=== PATIENT | male | born 1955 | race American Indian/Alaskan Native ===

== ENCOUNTER 2016-08-28 13:43 | Inpatient (IN) | payer MEDICAID, OTHER ==
[~2016-08-28] VITALS: Ht 170.2 cm; Wt 92.4 kg
[~2016-08-28 13:43] MED LIST: CLIN300C93 PO
[2016-08-28] MEDS ORDERED: GABA600T2 PO (14:42)
[2016-08-28] MEDS ORDERED: HYDR-3307 PO (14:42)
[2016-08-28] MEDS ORDERED: OMNIPAQUE 350 MG/ML, 100ML BOTTLE ONE (15:30)
[2016-08-28 15:44] LABS: ASPARTATE AMINO TRANSFERASE 29 U/L (15-37); BLOOD UREA NITROGEN 15 mg/dL (7-18)
[2016-08-28] MEDS ORDERED: VANCOMYCIN PER PHARMACY IV ONE (16:00)
[2016-08-28] MEDS ORDERED: VANCOMYCIN 1,800 MG in SODIUM CHLORIDE 0.9% 250 ML IV ONE (16:00)
[2016-08-28] MEDS ORDERED: PHARMACOKINETIC CONSULTATION MC ONE ×2 (16:00→21:30)
[2016-08-28] MEDS ORDERED: PIPERACILLIN/TAZO 3.375 GM in SODIUM CHLORIDE 0.9% 50 ML IVPB ONE (16:00)
[2016-08-28 16:07] LABS: DIFF TOTAL CELLS COUNTED 100 CELL DIFF
[2016-08-28 16:09] LABS: VERIFY COUNTS? YES
[2016-08-28 16:10] LABS: MICROCYTOSIS 1+
[2016-08-28] MEDS ORDERED: SODIUM CHLORIDE 0.9% 1,000ML IVBOLUS ONE (16:30)
[2016-08-28] MEDS ORDERED: ACETAMINOPHEN 325 MG TABLET PO ONE (17:00)
[2016-08-28] MEDS ORDERED: ACETAMINOPHEN 500 MG TABLET ONE (17:02)
[2016-08-28] MEDS ORDERED: PIPERACILLIN/TAZO/PMX 3.375GM 50 ML ONE (17:09)
[2016-08-28] MEDS ORDERED: MORPHINE SULFATE 4 MG/ML, 1ML IVPush PRN (18:30)
[2016-08-28] MEDS ORDERED: ONDANSETRON 2MG/ML, 2ML IVPush ONE (18:30)
[2016-08-28] MEDS ORDERED: ONDANSETRON 2MG/ML, 2ML ONE (18:57)
[2016-08-28] MEDS ORDERED: BISACODYL 10 MG SUPP PR PRN (19:00)
[2016-08-28] MEDS ORDERED: ONDANSETRON 2MG/ML, 2ML IVPush PRN (19:00)
[2016-08-28] MEDS: HEPARIN 5,000 UNITS/ML, 1ML SQ SCH (19:00)
[2016-08-28] MEDS ORDERED: ENALAPRILAT 1.25 MG/ML, 2ML IVPush PRN (19:00)
[2016-08-28] MEDS ORDERED: hydrALAzine 20 MG/ML, 1ML IVPush PRN (19:00)
[2016-08-28] MEDS ORDERED: POLYETHYLENE GLYCOL 17 GM PACKET PO PRN (19:00)
[2016-08-28] MEDS ORDERED: ACETAMINOPHEN 325 MG TABLET PO PRN (19:00)
[2016-08-28] MEDS ORDERED: VANCOMYCIN PMX 1GM/200ML 200 ML IV ONE (19:30)
[2016-08-28] MEDS ORDERED: VANCOMYCIN PER PHARMACY MC PRN (19:30)
[2016-08-28] MEDS ORDERED: POTASSIUM CHLORIDE 20 MEQ TAB.ER.PRT PO ONE (19:30)
[2016-08-28] MEDS ORDERED: PHARMACOKINETIC MONITORING MC PRN (21:30)
[2016-08-28 22:11] VITALS: BP 102/59
[2016-08-28] MEDS: GABAPENTIN 100 MG CAPSULE PO SCH (22:59)
[2016-08-28] MEDS: PIPERACILLIN/TAZO/PMX 3.375GM 50 ML IV SCH (22:59)
[2016-08-28] MEDS: OXYcodone/APAP 5/325MG TABLET PO PRN (23:00)
[2016-08-28] MEDS: SODIUM CHLORIDE 0.9% 1,000 ML IV SCH (23:00)
[2016-08-29] MEDS ORDERED: ALBUTEROL SULFATE 2.5 MG/3 ML NPPB PRN
[2016-08-29 01:18] VITALS: BP 92/59
[2016-08-29] MEDS: HEPARIN 5,000 UNITS/ML, 1ML SQ SCH ×4 (03:00→21:30)
[2016-08-29] MEDS: PIPERACILLIN/TAZO/PMX 3.375GM 50 ML IV SCH ×3 (05:10→20:40)
[2016-08-29 06:03] LABS: BLOOD UREA NITROGEN 13 mg/dL (7-18)
[2016-08-29 06:07] LABS: ASPARTATE AMINO TRANSFERASE 23 U/L (15-37)
[2016-08-29] MEDS ORDERED: VANCOMYCIN 1,600 MG in SODIUM CHLORIDE 0.9% 250 ML IV SCH (06:45)
[2016-08-29] MEDS: GABAPENTIN 100 MG CAPSULE PO SCH ×3 (08:18→20:57)
[2016-08-29] MEDS: SENNA/DOCUSATE TABLET PO SCH (08:18)
[2016-08-29] MEDS: SODIUM CHLORIDE 0.9% 1,000 ML IV SCH ×2 (08:29→15:24)
[2016-08-29 08:30] VITALS: BP 126/77
[2016-08-29] MEDS: morphine SULFATE 10 MG/ML, 1ML IVPush PRN (09:14)
[2016-08-29 11:42] LABS: PATH.CAST-FLAG NOT PRESENT; SPERM-FLAG NOT PRESENT; SRC-FLAG NOT PRESENT; XTAL-FLAG NOT PRESENT; YLC-FLAG NOT PRESENT
[2016-08-29] MEDS ORDERED: POTASSIUM CHLORIDE 40 MEQ in SODIUM CHLORIDE 0.9% 500 ML IV ONE (13:00)
[2016-08-29] MEDS ORDERED: ENALAPRILAT 1.25 MG/ML, 2ML IVPush PRN (13:04)
[2016-08-29] MEDS: OXYcodone/APAP 5/325MG TABLET PO PRN ×2 (13:34→20:57)
[2016-08-29 15:40] VITALS: BP 102/63
[2016-08-29] MEDS: VANCOMYCIN 1,600 MG in SODIUM CHLORIDE 0.9% 250 ML IV SCH (18:11)
[2016-08-29 20:28] VITALS: BP 147/85
[2016-08-30] MEDS: PIPERACILLIN/TAZO/PMX 3.375GM 50 ML IV SCH ×3 (01:43→16:46)
[2016-08-30] MEDS: HEPARIN 5,000 UNITS/ML, 1ML SQ SCH ×3 (01:44→18:46)
[2016-08-30 03:31] VITALS: BP 99/56
[2016-08-30] MEDS: VANCOMYCIN 1,600 MG in SODIUM CHLORIDE 0.9% 250 ML IV SCH ×2 (05:57→20:59)
[2016-08-30] MEDS: OXYcodone/APAP 5/325MG TABLET PO PRN ×2 (05:57→12:13)
[2016-08-30 08:25] VITALS: BP 118/70
[2016-08-30] MEDS: GABAPENTIN 100 MG CAPSULE PO SCH ×3 (08:39→20:59)
[2016-08-30] MEDS: SENNA/DOCUSATE TABLET PO SCH ×2 (08:52→08:59)
[2016-08-30] MEDS: morphine SULFATE 10 MG/ML, 1ML IVPush PRN ×4 (08:52→20:59)
[2016-08-30 13:06] VITALS: BP 123/81
[2016-08-30 19:18] VITALS: BP 142/88
[2016-08-31] MEDS: HEPARIN 5,000 UNITS/ML, 1ML SQ SCH ×3 (01:58→17:50)
[2016-08-31] MEDS: OXYcodone/APAP 5/325MG TABLET PO PRN ×3 (01:58→19:58)
[2016-08-31] MEDS: VANCOMYCIN 1,600 MG in SODIUM CHLORIDE 0.9% 250 ML IV SCH ×2 (01:59→15:44)
[2016-08-31 02:48] VITALS: BP 127/72
[2016-08-31] MEDS: morphine SULFATE 10 MG/ML, 1ML IVPush PRN ×3 (04:20→23:00)
[2016-08-31] MEDS: PIPERACILLIN/TAZO/PMX 3.375GM 50 ML IV SCH ×3 (06:14→17:50)
[2016-08-31 07:54] VITALS: BP 126/66
[2016-08-31] MEDS: GABAPENTIN 100 MG CAPSULE PO SCH ×3 (08:09→21:00)
[2016-08-31] MEDS: SENNA/DOCUSATE TABLET PO SCH ×2 (08:09→08:16)
[2016-08-31] MEDS: OxyconTIN ER 10 MG TAB.ER PO SCH (13:13)
[2016-08-31 14:30] VITALS: BP 127/80
[2016-08-31 19:46] VITALS: BP 143/74
[2016-09-01] MEDS: PIPERACILLIN/TAZO/PMX 3.375GM 50 ML IV SCH ×5 (00:18→20:47)
[2016-09-01] MEDS: OXYcodone/APAP 5/325MG TABLET PO PRN (00:18)
[2016-09-01] MEDS: HEPARIN 5,000 UNITS/ML, 1ML SQ SCH ×3 (01:22→20:00)
[2016-09-01] MEDS: OxyconTIN ER 10 MG TAB.ER PO SCH ×2 (01:22→13:05)
[2016-09-01] MEDS: VANCOMYCIN 1,600 MG in SODIUM CHLORIDE 0.9% 250 ML IV SCH ×3 (01:22→13:05)
[2016-09-01 01:33] VITALS: BP 139/82
[2016-09-01] MEDS: morphine SULFATE 10 MG/ML, 1ML IVPush PRN ×2 (05:35→20:46)
[2016-09-01 07:37] VITALS: BP 142/85
[2016-09-01] MEDS: GABAPENTIN 100 MG CAPSULE PO SCH ×3 (08:36→20:47)
[2016-09-01] MEDS: SENNA/DOCUSATE TABLET PO SCH (08:36)
[2016-09-01] MEDS: LACTOBACILLUS CHEW TABLET PO SCH ×3 (13:05→20:47)
[2016-09-01 16:06] VITALS: BP 124/81
[2016-09-01 18:55] VITALS: BP 133/78
[2016-09-02] MEDS: OxyconTIN ER 10 MG TAB.ER PO SCH ×2 (00:48→14:26)
[2016-09-02] MEDS: VANCOMYCIN 1,600 MG in SODIUM CHLORIDE 0.9% 250 ML IV SCH ×2 (00:53→15:34)
[2016-09-02] MEDS: morphine SULFATE 10 MG/ML, 1ML IVPush PRN ×2 (00:53→23:38)
[2016-09-02 01:34] VITALS: BP 133/66
[2016-09-02] MEDS: PIPERACILLIN/TAZO/PMX 3.375GM 50 ML IV SCH ×4 (03:11→23:38)
[2016-09-02] MEDS: HEPARIN 5,000 UNITS/ML, 1ML SQ SCH ×3 (04:00→23:38)
[2016-09-02 07:45] VITALS: BP 143/82
[2016-09-02] MEDS ORDERED: LIDOCAINE 1%, 20ML ONE (08:21)
[2016-09-02] MEDS ORDERED: MIDAZOLAM 1 MG/ML, 5ML ONE (08:28)
[2016-09-02] MEDS ORDERED: NALOXONE 1 MG/ML, 2ML ONE (08:29)
[2016-09-02] MEDS ORDERED: FENTANYL PF 100 MCG/2ML ONE (08:29)
[2016-09-02] MEDS ORDERED: FLUMAZENIL 0.1 MG/1 ML, 5ML ONE (08:29)
[2016-09-02] MEDS: LACTOBACILLUS CHEW TABLET PO SCH ×3 (09:00→21:45)
[2016-09-02] MEDS: GABAPENTIN 100 MG CAPSULE PO SCH ×4 (09:00→21:48)
[2016-09-02] MEDS: SENNA/DOCUSATE TABLET PO SCH (09:00)
[2016-09-02 10:24] VITALS: BP 149/95
[2016-09-02 12:10] VITALS: BP 141/84
[2016-09-02] MEDS: OXYcodone/APAP 5/325MG TABLET PO PRN ×2 (17:02→21:51)
[2016-09-02 19:29] VITALS: BP 124/73
[2016-09-03 01:33] VITALS: BP 114/73
[2016-09-03] MEDS: VANCOMYCIN 1,600 MG in SODIUM CHLORIDE 0.9% 250 ML IV SCH ×2 (03:36→15:39)
[2016-09-03] MEDS: OxyconTIN ER 10 MG TAB.ER PO SCH ×2 (03:37→14:19)
[2016-09-03] MEDS: PIPERACILLIN/TAZO/PMX 3.375GM 50 ML IV SCH ×4 (05:27→23:16)
[2016-09-03] MEDS: SENNA/DOCUSATE TABLET PO SCH (08:13)
[2016-09-03] MEDS: HEPARIN 5,000 UNITS/ML, 1ML SQ SCH ×3 (08:13→23:17)
[2016-09-03] MEDS: GABAPENTIN 100 MG CAPSULE PO SCH ×4 (08:16→22:04)
[2016-09-03] MEDS: LACTOBACILLUS CHEW TABLET PO SCH ×3 (08:16→22:03)
[2016-09-03 08:41] LABS: BLOOD UREA NITROGEN 11 mg/dL (7-18)
[2016-09-03 08:48] VITALS: BP 129/75
[2016-09-03] MEDS: OXYcodone/APAP 5/325MG TABLET PO PRN (09:29)
[2016-09-03] MEDS: morphine SULFATE 10 MG/ML, 1ML IVPush PRN ×3 (11:29→20:51)
[2016-09-03 15:03] VITALS: BP 148/83
[2016-09-03 20:35] VITALS: BP 130/81
[2016-09-04] MEDS: OxyconTIN ER 10 MG TAB.ER PO SCH (02:35)
[2016-09-04] MEDS: VANCOMYCIN 1,600 MG in SODIUM CHLORIDE 0.9% 250 ML IV SCH (02:47)
[2016-09-04 03:14] VITALS: BP 140/84
[2016-09-04] MEDS: PIPERACILLIN/TAZO/PMX 3.375GM 50 ML IV SCH ×2 (05:08→11:58)
[2016-09-04 07:12] VITALS: BP 122/84
[2016-09-04] MEDS: HEPARIN 5,000 UNITS/ML, 1ML SQ SCH (07:54)
[2016-09-04] MEDS: morphine SULFATE 10 MG/ML, 1ML IVPush PRN ×2 (07:54→11:58)
[2016-09-04] MEDS: SENNA/DOCUSATE TABLET PO SCH (07:55)
[2016-09-04] MEDS: LACTOBACILLUS CHEW TABLET PO SCH (07:55)
[2016-09-04] MEDS: GABAPENTIN 100 MG CAPSULE PO SCH (07:55)
[2016-09-04] MEDS ORDERED: GABA300C10 PO (10:49)
[2016-09-04] MEDS ORDERED: AMOX1TAB64 PO (10:49)
[2016-09-04] MEDS ORDERED: LACT1CAP24 PO (10:49)
[2016-09-04] MEDS ORDERED: OXYC-229 PO (10:49)
[2016-09-04] MEDS ORDERED: SENN1TAB7 PO (10:49)
[2016-09-04 14:43] VITALS: BP 140/84
== END 2016-09-04 15:09 | disposition home or self-care (01) | DRG 853 ==
LOC: ED 18:24 → EDIP 18:30 → EDBD 18:30 → 3NE 20:50
PROVIDERS: ADMIT Internal Medicine; ATTEND Internal Medicine
PROC: 07BJ3ZX Excision of Left Inguinal Lymphatic, Percutaneous Approach, Diagnostic (ICD-10-PCS; principal; 2016-09-02)
DX: A41.9 Sepsis, unspecified organism (principal); E43 Unspecified severe protein-calorie malnutrition; J18.9 Pneumonia, unspecified organism; L03.116 Cellulitis of left lower limb; L03.115 Cellulitis of right lower limb; B18.2 Chronic viral hepatitis C; F11.10 Opioid abuse, uncomplicated; G89.29 Other chronic pain; R59.0 Localized enlarged lymph nodes; E87.6 Hypokalemia; D50.9 Iron deficiency anemia, unspecified; Z90.49 Acquired absence of other specified parts of digestive tract; Z86.14 Personal history of Methicillin resistant Staphylococcus aureus infection; Z79.899 Other long term (current) drug therapy; Z68.31 Body mass index [BMI] 31.0-31.9, adult
CPT/HCPCS: 36415; 38505; 70450; 71010; 74177; 76942; 80048; 80053; 80061; 80202; 81001; 81003; 82140; 82728; 82962; 83036; 83540; 83550; 83605; 83615; 83735; 84145; 84439; 84443; 84466; 85025; 85610; 85651; 86140; 87040; 88305; 88341; 88342; 93005; 93970; 96361; 96365; 96366; 96367; 96375; 99156; 99157; J1644; J2250; J2405; J2543; J3010; J3370; J3480; J3490; Q9967; G0461; J2270; J2310; J7030; J7040; J7050

== ENCOUNTER 2016-09-15 19:44 | Observation (INO) | payer MEDICAID ==
[~2016-09-15] VITALS: Ht 170.2 cm; Wt 87.7 kg
[~2016-09-15 19:44] MED LIST changes: +AMOX1TAB64 PO; +GABA300C10 PO; +GABA600T2 PO; +HYDR-3307 PO; +LACT1CAP24 PO; +OXYC-229 PO; +SENN1TAB7 PO
[2016-09-15 20:58] LABS: BLOOD UREA NITROGEN 11 mg/dL (7-18)
[2016-09-15] MEDS ORDERED: ONDANSETRON 2MG/ML, 2ML IVPush ONE (21:00)
[2016-09-15] MEDS ORDERED: SODIUM CHLORIDE FLUSH 10ML SYR IVF ONE (21:00)
[2016-09-15] MEDS ORDERED: ONDANSETRON 2MG/ML, 2ML ONE (21:51)
[2016-09-15] MEDS ORDERED: HYDROmorphone 1 MG/ML, 1ML ONE (21:51)
[2016-09-15] MEDS: HYDROmorphone 1 MG/ML, 1ML IVPush PRN (22:08)
[2016-09-15] MEDS ORDERED: OMNIPAQUE 350 MG/ML, 100ML BOTTLE ONE (23:19)
[2016-09-16] MEDS ORDERED: SODIUM CHLORIDE 0.9% 1,000 ML IV ONE (01:04)
[2016-09-16] MEDS ORDERED: HYDROmorphone 1 MG/ML, 1ML ONE (01:04)
[2016-09-16] MEDS: HYDROmorphone 1 MG/ML, 1ML IVPush PRN (01:08)
[2016-09-16] MEDS ORDERED: HYDROmorphone 1 MG/ML, 1ML IVPush PRN (01:30)
[2016-09-16] MEDS ORDERED: SODIUM CHLORIDE FLUSH 10ML SYR IVF PRN (01:30)
[2016-09-16] MEDS ORDERED: ONDANSETRON 2MG/ML, 2ML IVPush PRN ×2 (01:30→06:00)
[2016-09-16 03:56] VITALS: BP 137/84
[2016-09-16] MEDS ORDERED: BUPIVACAINE/PF-EPI 0.5% 1:200K ONE (05:32)
[2016-09-16] MEDS ORDERED: MIDAZOLAM 1 MG/ML, 2ML ONE (05:41)
[2016-09-16] MEDS ORDERED: FENTANYL PF 250 MCG/5ML ONE (05:41)
[2016-09-16] MEDS ORDERED: PROMETHAZINE 25 MG/ML, 1ML IV PRN (06:00)
[2016-09-16] MEDS ORDERED: ACETAMINOPHEN 325 MG TABLET PO PRN (06:00)
[2016-09-16] MEDS ORDERED: MEPERIDINE/PF 25MG/0.5ML IVPush PRN (06:00)
[2016-09-16] MEDS ORDERED: hydrALAzine 20 MG/ML, 1ML IV PRN (06:00)
[2016-09-16] MEDS ORDERED: LABETALOL 5MG/ML, 20ML IV PRN (06:00)
[2016-09-16] MEDS ORDERED: OXYcodone 5 MG/5 ML ORAL.SOL UDC PO PRN (06:00)
[2016-09-16] MEDS ORDERED: HYDROmorphone 1 MG/ML, 1ML IV PRN (06:00)
[2016-09-16] MEDS ORDERED: VANCOMYCIN 1,000 MG ONE (06:18)
[2016-09-16] MEDS ORDERED: BUPIVACAINE/PF-EPI 0.5% 1:200K IM ONE (06:46)
[2016-09-16] MEDS ORDERED: FENTANYL PF 100 MCG/2ML ONE (07:06)
[2016-09-16] MEDS ORDERED: OXYcodone 5 MG/5 ML ORAL.SOL UDC ONE (07:07)
[2016-09-16] MEDS: FENTANYL PF 100 MCG/2ML IV PRN ×2 (07:10→07:39)
[2016-09-16] MEDS ORDERED: KETOROLAC 30 MG/1 ML ONE (07:43)
[2016-09-16] MEDS ORDERED: HYDROmorphone 2 MG/ML, 1ML ONE (07:46)
[2016-09-16] MEDS ORDERED: ACETAMINOPHEN 325 MG/10.15 ML UDC ONE (07:52)
[2016-09-16] MEDS ORDERED: ACETAMINOPHEN 650 MG/20.3 ML UDC ONE (07:52)
[2016-09-16] MEDS ORDERED: KETOROLAC 30 MG/1 ML IVPush ONE (08:00)
[2016-09-16 08:35] VITALS: BP 131/91
[2016-09-16] MEDS ORDERED: LACTATED RINGERS 1,000 ML IV SCH (09:00)
[2016-09-16] MEDS ORDERED: HYDROcodone/APAP 10/325 MG TABLET PO PRN (09:00)
[2016-09-16] MEDS ORDERED: ONDANSETRON 4 MG TABLET PO PRN (09:00)
[2016-09-16] MEDS ORDERED: KETOROLAC 30 MG/1 ML IV PRN (09:00)
[2016-09-16] MEDS ORDERED: SUCCINYLCHOLINE 20 MG/ML, 10ML ONE (10:57)
[2016-09-16] MEDS ORDERED: PROPOFOL 10 MG/ML, 20ML ONE (10:57)
[2016-09-16] MEDS ORDERED: GLYCOPYRROLATE 0.2MG/1ML ONE (10:57)
[2016-09-16] MEDS ORDERED: NEOSTIGMINE 1 MG/ML, 10ML ONE (10:57)
[2016-09-16] MEDS ORDERED: ROCURONIUM 10 MG/ML ONE (10:57)
[2016-09-16 13:37] VITALS: BP 130/81
[2016-09-16] MEDS ORDERED: HYDR-3307 PO (15:29)
[2016-09-16 15:40] VITALS: BP 138/90
== END 2016-09-16 16:57 | disposition home or self-care (01) ==
LOC: ED 23:34 → INTOOBSV 09-16 01:04 → EDIP 09-16 01:04 → 4NOR 09-16 03:00
PROVIDERS: ADMIT Surgery; ATTEND Surgery
DX: K40.30 Unilateral inguinal hernia, with obstruction, without gangrene, not specified as recurrent (principal); G89.29 Other chronic pain; B95.62 Methicillin resistant Staphylococcus aureus infection as the cause of diseases classified elsewhere; D17.9 Benign lipomatous neoplasm, unspecified; F17.210 Nicotine dependence, cigarettes, uncomplicated; Z86.14 Personal history of Methicillin resistant Staphylococcus aureus infection
CPT/HCPCS: 36415; 49507; 74177; 76857; 80048; 82040; 83605; 85025; 96374; 96375; 96376; 99285; C1781; G0378; J0330; J1170; J1885; J2250; J2405; J2704; J2710; J3010; J3370; J7030; J7120; Q9967; J3490

== ENCOUNTER → 2016-09-25 | Outpatient (CLI) | payer MEDICAID | END | disposition home or self-care (01) | LOC: WOUND 12:57 | PROVIDERS: ATTEND Physician Assistant | DX: L97.822 Non-pressure chronic ulcer of other part of left lower leg with fat layer exposed (principal); L97.812 Non-pressure chronic ulcer of other part of right lower leg with fat layer exposed; B18.2 Chronic viral hepatitis C; A48.0 Gas gangrene; I10 Essential (primary) hypertension; F17.210 Nicotine dependence, cigarettes, uncomplicated; Z86.14 Personal history of Methicillin resistant Staphylococcus aureus infection; Z87.01 Personal history of pneumonia (recurrent) | CPT/HCPCS: 11042; 11045 ==

== ENCOUNTER → 2016-10-07 | Outpatient (CLI) | payer MEDICAID | END | disposition home or self-care (01) | LOC: CFH 14:57 | PROVIDERS: ATTEND Physician Assistant | DX: L97.812 Non-pressure chronic ulcer of other part of right lower leg with fat layer exposed (principal); L97.822 Non-pressure chronic ulcer of other part of left lower leg with fat layer exposed | CPT/HCPCS: 71020 ==